=== PATIENT | female | born 1965 | race Caucasian/White ===

== ENCOUNTER 2020-04-26 11:02 | Inpatient (IN) | payer OTHER ==
[2020-04-23 14:03] LABS: BASOPHILS # (AUTO) 0.1 (0.0-0.1); BASOPHILS % 0.8 % (0.0-1.0); EOSINOPHILS # (AUTO) 0.1 (0.0-0.4); EOSINOPHILS % 1.8 % (0.0-6.0); HEMATOCRIT 40.5 % (34.2-44.1); HEMOGLOBIN 12.7 g/dL (12.0-16.0); LYMPHOCYTES # (AUTO) 2.1 (1.0-3.2); LYMPHOCYTES % 26.7 % (18.0-39.1); MEAN CORPUSCULAR HEMOGLOBIN 29.1 pg (28-32); MEAN CORPUSCULAR HGB CONC 31.4 g/dL (31-35); MEAN CORPUSCULAR VOLUME 92.7 fL (81-99); MONOCYTES # (AUTO) 0.7 (0.2-0.8); MONOCYTES % 9.1 % (4.4-11.3); NEUTROPHILS # (AUTO) 4.7 (2.1-6.9); NEUTROPHILS % 61.3 % (38.7-80.0); PLATELET COUNT 259 x10e3/uL (140-360); RED BLOOD COUNT 4.37 x10e6/uL (3.6-5.1); RED CELL DISTRIBUTION WIDTH 12.9 % (11.7-14.4)
[2020-04-23 14:06] LABS: CLARITY,URINE CLEAR (CLEAR); COLOR,URINE YELLOW (YELLOW)
[2020-04-23 14:07] LABS: BILIRUBIN,URINE NEGATIVE (NEGATIVE); KETONES,URINE NEGATIVE (NEGATIVE); LEUKOCYTE ESTERASE ,URINE NEGATIVE (NEGATIVE); NITRITE,URINE NEGATIVE (NEGATIVE); PROTEIN,URINE DIPSTICK NEGATIVE (NEGATIVE); URINE UROBILINOGEN 0.2 mg/dL (0.2 - 1)
[2020-04-23 14:30] LABS: ANION GAP 17.6 mmol/L (8-16); BLOOD UREA NITROGEN 11 mg/dL (7-26); BUN/CREATININE RATIO 14 (6-25); CALCIUM 8.8 mg/dL (8.4-10.2); CARBON DIOXIDE 23 mmol/L (22-29); CHLORIDE 104 mmol/L (98-107); CREATININE, SERUM 0.77 mg/dL (0.57-1.11); EST GLOMERULAR FILTRATION RATE > 60 ML/MIN (60-); GLUCOSE 80 mg/dL (74-118); POTASSIUM 4.6 mmol/L (3.5-5.1); SODIUM 140 mmol/L (136-145)
[~2020-04-26] VITALS: Ht 152.4 cm; Wt 64.4 kg
[~2020-04-26 11:02] MED LIST: BUPIVACAINE 0.5%/EPI 30 ML SDV INJ ONE; INDIGOTINDISULFONATE SODIUM 8 MG/ML AMP IJ ONE; IOPAMIDOL 300MG/ML 50ML INFUS..BTL IV ONE; MELATONIN3 MG PO
[2020-04-26] MEDS ORDERED: CEFAZOLIN SOD 1 GM/NS 50ML 0 ML IV ONE (11:36)
[2020-04-26] MEDS ORDERED: CLINDAMYCIN 300MG 50 ML IV ONE (11:36)
[2020-04-26] MEDS ORDERED: PIPER-TAZ 3.375 GM 50 ML ONE (11:36)
[2020-04-26] MEDS ORDERED: GLYCOPYRROLATE INJ 0.2 MG/ML VIAL ONE (12:41)
[2020-04-26] MEDS ORDERED: LIDOCAINE HCL 2% LOCAL INJ 5 ML SDV VIAL INJ ONE (12:41)
[2020-04-26] MEDS ORDERED: SEVOFLURANE INHAL SOLN 250 ML PEN BTL ONE (12:41)
[2020-04-26] MEDS ORDERED: DEXAMETHASONE SOD PHOS INJ 4 MG/ML VIAL ONE (12:41)
[2020-04-26] MEDS ORDERED: NEOSTIGMINE 1 MG/ML 10ML VIAL ONE (12:41)
[2020-04-26] MEDS ORDERED: PROPOFOL IV EMULSION 10 MG/ML 20 ML VIAL ONE (12:41)
[2020-04-26] MEDS ORDERED: ONDANSETRON HCL INJ 2MG/ML 2ML 2 MG/ML VIAL ONE (12:41)
[2020-04-26] MEDS ORDERED: ROCURONIUM BROMIDE 10 MG/ML 5ML VIAL IV ONE (12:41)
[2020-04-26] MEDS ORDERED: MIDAZOLAM HCL 2 MG/2 ML VIAL ONE (13:31)
[2020-04-26] MEDS ORDERED: FENTANYL CITRATE/PF 100MCG/2 ML INJ ONE (13:31)
[2020-04-26] MEDS ORDERED: DIPHENHYDRAMINE HCL INJ 50 MG/ML VIAL IM PRN (19:00)
[2020-04-26] MEDS ORDERED: ONDANSETRON HCL INJ 2MG/ML 2ML 2 MG/ML VIAL IV PRN (19:00)
[2020-04-26] MEDS ORDERED: NALOXONE HCL INJ 0.4 MG/ML AMP IV PRN (19:00)
[2020-04-26] MEDS ORDERED: HYDROMORPHONE 1MG/1ML INJ ONE (19:23)
[2020-04-26] MEDS: MORPHINE SULFATE 1 MG/ML 30ML PCA IV PRN (19:50)
[2020-04-26 20:00] VITALS: BP 133/79
[2020-04-26 20:03] LABS: BASOPHILS # (AUTO) 0.1 (0.0-0.1); BASOPHILS % 0.4 % (0.0-1.0); EOSINOPHILS % 0.2 % (0.0-6.0); HEMATOCRIT 40.5 % (34.2-44.1); HEMOGLOBIN 12.7 g/dL (12.0-16.0); LYMPHOCYTES # (AUTO) 0.9 (1.0-3.2); LYMPHOCYTES % 7.7 % (18.0-39.1); MEAN CORPUSCULAR HEMOGLOBIN 29.4 pg (28-32); MEAN CORPUSCULAR HGB CONC 31.4 g/dL (31-35); MEAN CORPUSCULAR VOLUME 93.8 fL (81-99); MONOCYTES # (AUTO) 0.2 (0.2-0.8); MONOCYTES % 1.3 % (4.4-11.3); NEUTROPHILS # (AUTO) 10.7 (2.1-6.9); NEUTROPHILS % 89.6 % (38.7-80.0); PLATELET COUNT 220 x10e3/uL (140-360); RED BLOOD COUNT 4.32 x10e6/uL (3.6-5.1); RED CELL DISTRIBUTION WIDTH 12.7 % (11.7-14.4)
[2020-04-26 20:05] VITALS: BP 133/79
[2020-04-26 20:26] LABS: ANION GAP 16.8 mmol/L (8-16); BLOOD UREA NITROGEN 14 mg/dL (7-26); BUN/CREATININE RATIO 18 (6-25); CALCIUM 8.2 mg/dL (8.4-10.2); CARBON DIOXIDE 20 mmol/L (22-29); CHLORIDE 107 mmol/L (98-107); CREATININE, SERUM 0.76 mg/dL (0.57-1.11); EST GLOMERULAR FILTRATION RATE > 60 ML/MIN (60-); GLUCOSE 117 mg/dL (74-118); POTASSIUM 3.8 mmol/L (3.5-5.1); SODIUM 140 mmol/L (136-145)
[2020-04-26] MEDS: CLINDAMYCIN 300MG 50 ML IV SCH (21:34)
[2020-04-26] MEDS: PIPER-TAZ 3.375 GM 50 ML IV SCH (22:27)
[2020-04-26] MEDS: D5.45%NS/KCL 20MEQ 1,000 ML IV SCH (22:28)
[2020-04-26 23:01] VITALS: BP 139/87
[2020-04-27] VITALS (8 sets, daily range): BP systolic 96–119; BP diastolic 57–72
[2020-04-27] MEDS: CEPACOL SORE THROAT LOZENGES PO PRN ×3 (04:12→14:57)
[2020-04-27] MEDS: ONDANSETRON HCL INJ 2MG/ML 2ML 2 MG/ML VIAL IV PRN ×5 (04:25→20:30)
[2020-04-27 05:15] LABS: BASOPHILS % 0.2 % (0.0-1.0); HEMATOCRIT 36.8 % (34.2-44.1); HEMOGLOBIN 11.5 g/dL (12.0-16.0); LYMPHOCYTES # (AUTO) 0.6 (1.0-3.2); LYMPHOCYTES % 3.8 % (18.0-39.1); MEAN CORPUSCULAR HEMOGLOBIN 28.9 pg (28-32); MEAN CORPUSCULAR HGB CONC 31.3 g/dL (31-35); MEAN CORPUSCULAR VOLUME 92.5 fL (81-99); MONOCYTES # (AUTO) 0.5 (0.2-0.8); MONOCYTES % 3.3 % (4.4-11.3); NEUTROPHILS # (AUTO) 14.3 (2.1-6.9); NEUTROPHILS % 92.2 % (38.7-80.0); PLATELET COUNT 209 x10e3/uL (140-360); RED BLOOD COUNT 3.98 x10e6/uL (3.6-5.1); RED CELL DISTRIBUTION WIDTH 12.8 % (11.7-14.4)
[2020-04-27] MEDS: CLINDAMYCIN 300MG 50 ML IV SCH ×3 (05:20→21:56)
[2020-04-27 05:39] LABS: ANION GAP 18.7 mmol/L (8-16); BLOOD UREA NITROGEN 12 mg/dL (7-26); BUN/CREATININE RATIO 15 (6-25); CALCIUM 7.9 mg/dL (8.4-10.2); CARBON DIOXIDE 20 mmol/L (22-29); CHLORIDE 105 mmol/L (98-107); CREATININE, SERUM 0.79 mg/dL (0.57-1.11); EST GLOMERULAR FILTRATION RATE > 60 ML/MIN (60-); GLUCOSE 200 mg/dL (74-118); POTASSIUM 4.7 mmol/L (3.5-5.1); SODIUM 139 mmol/L (136-145)
[2020-04-27] MEDS: PIPER-TAZ 3.375 GM 50 ML IV SCH ×3 (05:54→22:30)
[2020-04-27] MEDS: MORPHINE SULFATE 1 MG/ML 30ML PCA IV PRN (05:58)
[2020-04-27] MEDS: D5.45%NS/KCL 20MEQ 1,000 ML IV SCH ×3 (06:08→20:30)
[2020-04-27] MEDS: PANTOPRAZOLE 40 MG 10ML VIAL IV SCH ×2 (08:07→16:45)
[2020-04-27] MEDS: DOCUSATE SODIUM 100 MG CAP PO SCH ×2 (08:07→16:45)
[2020-04-27] MEDS ORDERED: MORPHINE SULFATE 1 MG/ML 30ML PCA IV PRN (11:00)
[2020-04-27] MEDS ORDERED: ACETAMINOPHEN 325 MG TAB PO SCH (14:00)
[2020-04-27] MEDS: ACETAMINOPHEN 325 MG TAB PO PRN ×2 (14:29→20:30)
[2020-04-27] MEDS: MELATONIN 5 MG TABLET PO SCH (21:00)
[2020-04-28] VITALS (7 sets, daily range): BP systolic 96–129; BP diastolic 58–74
[2020-04-28] MEDS: ACETAMINOPHEN 325 MG TAB PO PRN (02:40)
[2020-04-28] MEDS: ONDANSETRON HCL INJ 2MG/ML 2ML 2 MG/ML VIAL IV PRN ×2 (02:40→08:40)
[2020-04-28] MEDS: CEPACOL SORE THROAT LOZENGES PO PRN (02:44)
[2020-04-28] MEDS: CLINDAMYCIN 300MG 50 ML IV SCH ×3 (05:30→22:05)
[2020-04-28 05:34] LABS: BASOPHILS % 0.4 % (0.0-1.0); EOSINOPHILS # (AUTO) 0.1 (0.0-0.4); EOSINOPHILS % 0.6 % (0.0-6.0); HEMATOCRIT 31.7 % (34.2-44.1); HEMOGLOBIN 9.9 g/dL (12.0-16.0); LYMPHOCYTES # (AUTO) 1.8 (1.0-3.2); LYMPHOCYTES % 16.2 % (18.0-39.1); MEAN CORPUSCULAR HEMOGLOBIN 30.3 pg (28-32); MEAN CORPUSCULAR HGB CONC 31.2 g/dL (31-35); MEAN CORPUSCULAR VOLUME 96.9 fL (81-99); MONOCYTES # (AUTO) 0.7 (0.2-0.8); MONOCYTES % 5.9 % (4.4-11.3); NEUTROPHILS # (AUTO) 8.4 (2.1-6.9); NEUTROPHILS % 76.5 % (38.7-80.0); PLATELET COUNT 183 x10e3/uL (140-360); RED BLOOD COUNT 3.27 x10e6/uL (3.6-5.1); RED CELL DISTRIBUTION WIDTH 13.2 % (11.7-14.4)
[2020-04-28] MEDS: PIPER-TAZ 3.375 GM 50 ML IV SCH ×3 (06:00→22:35)
[2020-04-28 06:01] LABS: ANION GAP 15.9 mmol/L (8-16); BLOOD UREA NITROGEN 7 mg/dL (7-26); BUN/CREATININE RATIO 9 (6-25); CALCIUM 7.8 mg/dL (8.4-10.2); CARBON DIOXIDE 22 mmol/L (22-29); CHLORIDE 106 mmol/L (98-107); CREATININE, SERUM 0.81 mg/dL (0.57-1.11); EST GLOMERULAR FILTRATION RATE > 60 ML/MIN (60-); GLUCOSE 103 mg/dL (74-118); POTASSIUM 3.9 mmol/L (3.5-5.1); SODIUM 140 mmol/L (136-145)
[2020-04-28 06:54] LABS: ALBUMIN 3.8 g/dL (3.5-5.0); ALBUMIN/GLOBULIN RATIO 1.9 (0.8-2.0); ALKALINE PHOSPHATASE 46 IU/L (40-150); BLOOD UREA NITROGEN 7 mg/dL (7-26); BUN/CREATININE RATIO 8 (6-25); CALCIUM 7.8 mg/dL (8.4-10.2); CARBON DIOXIDE 21 mmol/L (22-29); CHLORIDE 107 mmol/L (98-107); CREATININE, SERUM 0.84 mg/dL (0.57-1.11); EST GLOMERULAR FILTRATION RATE > 60 ML/MIN (60-); GLUCOSE 104 mg/dL (74-118); MAGNESIUM 2.1 MG/DL (1.3-2.1); SODIUM 140 mmol/L (136-145)
[2020-04-28 07:00] LABS: ALANINE AMINOTRANSFERASE < 6 IU/L (0-55)
[2020-04-28] MEDS: PANTOPRAZOLE 40 MG 10ML VIAL IV SCH ×2 (08:15→16:50)
[2020-04-28] MEDS: DOCUSATE SODIUM 100 MG CAP PO SCH ×2 (08:15→16:50)
[2020-04-28] MEDS: ACETAMINOPHEN/CODEINE 300MG - 30MG TAB PO PRN ×3 (12:52→22:16)
[2020-04-28] MEDS ORDERED: SIMETHICONE 80 MG CHEW PO PRN (13:30)
[2020-04-28] MEDS ORDERED: BISACODYL 10 MG SUPP PR PRN (13:30)
[2020-04-28] MEDS: SIMETHICONE 80 MG CHEW PO SCH ×2 (16:46→23:50)
[2020-04-28] MEDS: MORPHINE SULFATE 2 MG/ML SYR 1ML IV PRN ×2 (16:50→19:55)
[2020-04-29] VITALS: BP 101/60
[2020-04-29] MEDS: MELATONIN 5 MG TABLET PO SCH (00:10)
[2020-04-29] MEDS: ACETAMINOPHEN/CODEINE 300MG - 30MG TAB PO PRN ×3 (02:50→10:55)
[2020-04-29 04:00] VITALS: BP 97/64
[2020-04-29] MEDS: CLINDAMYCIN 300MG 50 ML IV SCH (05:33)
[2020-04-29] MEDS: SIMETHICONE 80 MG CHEW PO SCH (05:33)
[2020-04-29 06:02] LABS: BASOPHILS % 0.4 % (0.0-1.0); EOSINOPHILS # (AUTO) 0.1 (0.0-0.4); EOSINOPHILS % 1.3 % (0.0-6.0); HEMATOCRIT 31.9 % (34.2-44.1); HEMOGLOBIN 9.8 g/dL (12.0-16.0); LYMPHOCYTES # (AUTO) 1.5 (1.0-3.2); LYMPHOCYTES % 16.8 % (18.0-39.1); MEAN CORPUSCULAR HEMOGLOBIN 28.9 pg (28-32); MEAN CORPUSCULAR HGB CONC 30.7 g/dL (31-35); MEAN CORPUSCULAR VOLUME 94.1 fL (81-99); MONOCYTES # (AUTO) 0.7 (0.2-0.8); NEUTROPHILS # (AUTO) 6.5 (2.1-6.9); NEUTROPHILS % 73.2 % (38.7-80.0); PLATELET COUNT 182 x10e3/uL (140-360); RED BLOOD COUNT 3.39 x10e6/uL (3.6-5.1); RED CELL DISTRIBUTION WIDTH 13.2 % (11.7-14.4)
[2020-04-29] MEDS: PIPER-TAZ 3.375 GM 50 ML IV SCH (06:20)
[2020-04-29 06:23] LABS: ANION GAP 10.6 mmol/L (8-16); BLOOD UREA NITROGEN 5 mg/dL (7-26); BUN/CREATININE RATIO 7 (6-25); CALCIUM 8.1 mg/dL (8.4-10.2); CARBON DIOXIDE 29 mmol/L (22-29); CHLORIDE 105 mmol/L (98-107); CREATININE, SERUM 0.76 mg/dL (0.57-1.11); EST GLOMERULAR FILTRATION RATE > 60 ML/MIN (60-); GLUCOSE 88 mg/dL (74-118); POTASSIUM 3.6 mmol/L (3.5-5.1); SODIUM 141 mmol/L (136-145)
[2020-04-29 07:41] VITALS: BP 94/60
[2020-04-29 07:54] VITALS: BP 94/60
[2020-04-29] MEDS ORDERED: TYLENOL # 31 EA PO ×2 (08:49→08:53)
[2020-04-29] MEDS ORDERED: LEVAQUIN500 MG PO ×2 (08:50→08:53)
[2020-04-29] MEDS ORDERED: HYDROXYZINE HCL25 MG PO ×2 (08:50→08:54)
[2020-04-29] MEDS: DOCUSATE SODIUM 100 MG CAP PO SCH (09:00)
[2020-04-29] MEDS: PANTOPRAZOLE 40 MG 10ML VIAL IV SCH (09:00)
== END 2020-04-29 10:57 | disposition home or self-care (01) | DRG 743 ==
LOC: OR 11:02 → PACU V 16:18 → MED/SURG 20:11
PROVIDERS: ADMIT Family Medicine; ATTEND Family Medicine
PROC: 0UT7FZZ Resection of Bilateral Fallopian Tubes, Via Natural or Artificial Opening With Percutaneous Endoscopic Assistance (ICD-10-PCS; 2020-04-26)
PROC: 0JUC0JZ Supplement of Pelvic Region Subcutaneous Tissue and Fascia with Synthetic Substitute, Open Approach (ICD-10-PCS; 2020-04-26)
PROC: 0TSD0ZZ Reposition Urethra, Open Approach (ICD-10-PCS; 2020-04-26)
PROC: 0UQG0ZZ Repair Vagina, Open Approach (ICD-10-PCS; 2020-04-26)
PROC: BT141ZZ Fluoroscopy of Kidneys, Ureters and Bladder using Low Osmolar Contrast (ICD-10-PCS; 2020-04-26)
PROC: 0UT9FZZ Resection of Uterus, Via Natural or Artificial Opening With Percutaneous Endoscopic Assistance (ICD-10-PCS; principal; 2020-04-26 15:26)
PROC: 0UT2FZZ Resection of Bilateral Ovaries, Via Natural or Artificial Opening With Percutaneous Endoscopic Assistance (ICD-10-PCS; 2020-04-26 15:26)
DX: N81.89 Other female genital prolapse (principal); N81.2 Incomplete uterovaginal prolapse; R39.14 Feeling of incomplete bladder emptying; R35.1 Nocturia; N95.2 Postmenopausal atrophic vaginitis; N39.46 Mixed incontinence; R33.9 Retention of urine, unspecified; R39.16 Straining to void; R39.12 Poor urinary stream; N32.81 Overactive bladder; N81.6 Rectocele; N36.41 Hypermobility of urethra; R31.21 Asymptomatic microscopic hematuria; K21.9 Gastro-esophageal reflux disease without esophagitis; D64.9 Anemia, unspecified; J02.9 Acute pharyngitis, unspecified; Z87.891 Personal history of nicotine dependence; Z72.89 Other problems related to lifestyle; N92.0 Excessive and frequent menstruation with regular cycle; D25.9 Leiomyoma of uterus, unspecified; Z11.59 Encounter for screening for other viral diseases
CPT/HCPCS: 36415; 71046; 74420; 80048; 80053; 81003; 83735; 84702; 85025; 86850; 86900; 88307; 93005; 96361; C1752; C1758; J0690; J1100; J1170; J2001; J2250; J2270; J2405; J2543; J2710; J3010; U0002